=== PATIENT | male | born 1935 | race Caucasian/White ===

== ENCOUNTER 2021-06-13 15:38 | Emergency (ER) | payer MEDICARE, OTHER ==
[2021-06-13 15:43] VITALS: BP 79/63; PULSE 64; RESP 20
[2021-06-13] MEDS ORDERED: DIPH,PERTUS(ACELL)TETVAC-LF 0.5 ML VIAL IM ONE (15:44)
[2021-06-13] MEDS ORDERED: fentaNYL (PF) 50 MCG/ML 2 ML AMP IVP ONE ×2 (15:45→16:18)
[2021-06-13] MEDS ORDERED: TRANEXAMIC ACID IN NACL,ISO-OS 1,000 MG in SALINE 1 100ML.BAG IVPB STA (15:47)
[2021-06-13] MEDS ORDERED: levETIRAcetam IV 2,000 MG in SODIUM CHLORIDE 0.9% 250 ML IVPB ONE (16:00)
[2021-06-13] MEDS ORDERED: EPINEPHrine 4 MG in DEXTROSE 5% IN WATER 250 ML IV SCH ×2 (16:00)
[2021-06-13] MEDS ORDERED: SODIUM CHLORIDE 3%(HYPERTONIC) 500 ML IV ONE (16:00)
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
[2021-06-13 16:11] LABS: Basophils % (A) 0 %; Eosinophils # (A) 0.1 k/uL (0-0.7); Eosinophils % (A) 1 %; HCT 33.5 % (39.0-53.0); HGB 11.5 gm/dL (13.0-17.5); Lymphocytes # (A) 3.2 k/uL (1.0-4.8); Lymphocytes % (A) 48 %; MCH 34.3 pg (25.0-35.0); MCHC 34.3 g/dL (31.0-37.0); MCV 100.1 fL (80.0-100.0); Mean Platelet Volume 9.6; Monocytes # (A) 0.4 k/uL (0-1.0); Monocytes % (A) 6 %; Neutrophils # (A) 2.9 k/uL (1.3-7.7); Neutrophils % (A) 44 %; Platelet Count 125 k/uL (150-450); RBC 3.34 m/uL (4.30-5.90); RDW 11.5 % (11.5-15.5); WBC 6.6 k/uL (3.8-10.6)
[2021-06-13 16:19] LABS: INR 1.2 (<1.2); Partial Thromboplastin Time 33.2 sec (22.0-30.0); Prothrombin Time 12.7 sec (9.0-12.0)
[2021-06-13 16:23] LABS: ALT 19 U/L (4-49); AST 34 U/L (17-59); African American GFR (CKD) 77 (>60 ml/min/1.73 sqM); Albumin 2.5 g/dL (3.5-5.0); Alcohol <10 mg/dL; Alkaline Phosphatase 42 U/L (38-126); Anion Gap 9 mmol/L; Blood Urea Nitrogen 19 mg/dL (9-20); Calcium 7.3 mg/dL (8.4-10.2); Carbon Dioxide 23 mmol/L (22-30); Chloride 108 mmol/L (98-107); Glucose 172 mg/dL (74-99); Non-African American GFR(CKD) 66 (>60 ml/min/1.73 sqM); Potassium 3.2 mmol/L (3.5-5.1); Sodium 140 mmol/L (137-145); Total Bilirubin 0.5 mg/dL (0.2-1.3); Total Protein 4.8 g/dL (6.3-8.2)
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
== END 2021-06-13 16:38 | disposition other institution (70) ==
LOC: EC 15:38
DX: S01.03XA Puncture wound without foreign body of scalp, initial encounter (principal); W34.00XA Accidental discharge from unspecified firearms or gun, initial encounter
CPT/HCPCS: 86900; 86901; 80053; 85025; 85610; 85730; 86850; 86920; 71045; 90715; 99291; 90471; 36556; L0120; G0480; J0171; J0690; J3010; J1953; 80320